=== PATIENT | male | born 1980 | race Caucasian/White ===

== ENCOUNTER → 2019-11-13 | Outpatient (CLI) | payer OTHER ==
[~2019-11-13] MED LIST: Bactrim Ds Tab1 EACH PO; Cleocin HCl150 MG PO; Cleocin HCl300 MG PO; HYDACE5 PO; Keflex500 MG PO; NEOPOLHCSU OT; Peridex480 ML SS; RXCLIN PO; SULTRIDS PO
[2019-11-15 12:09] LABS: CHLAMYDIA BY NAA Negative (Negative); GONOCOCCUS BY NAA Negative (Negative); TRICH VAG BY NAA Positive (Negative)
== END ==
LOC: LAB UCHC 09:57 → LAB SHORT 09:57 → LAB FUT 11-12 09:30 → EDSTATUS 11-12 09:30
PROVIDERS: Registered Nurse Community Health
DX: Z20.2 Contact with and (suspected) exposure to infections with a predominantly sexual mode of transmission (principal)
CPT/HCPCS: 87491; 87591; 87661